=== PATIENT | female | born 1975 | race Caucasian/White ===

== ENCOUNTER 2025-02-20 06:17 | Day surgery (SDC) | payer BC ==
[2025-02-20] MEDS ORDERED: Propofol 200 MG/20 ML SDV IV ONE (06:18)
[2025-02-20] MEDS: Lactated Ringers 1,000 ML IV SCH (06:46)
[2025-02-20] MEDS ORDERED: Propofol 200 MG/20 ML SDV ONE (08:44)
== END 2025-02-20 09:28 | disposition home or self-care (01) ==
LOC: DL.ENDO 06:17
PROVIDERS: ATTEND Internal Medicine Gastroenterology
DX: Z12.11 Encounter for screening for malignant neoplasm of colon (principal); K63.5 Polyp of colon; K64.4 Residual hemorrhoidal skin tags; I10 Essential (primary) hypertension; Z88.8 Allergy status to other drugs, medicaments and biological substances
CPT/HCPCS: 45385; J2704; J7120